=== PATIENT | male | born 1990 | race Caucasian/White ===

== ENCOUNTER 2018-02-07 10:52 | Emergency (ER) | payer OTHER ==
[~2018-02-07] VITALS: Ht 182.9 cm; Wt 104.0 kg
[2018-02-07] MEDS ORDERED: sulfamethoxazole/trimethoprim DS (800/160mg) tablet PO ONE (11:10)
[2018-02-07] MEDS ORDERED: bacitracin 15gm ointment TP ONE (11:10)
[2018-02-07] MEDS ORDERED: ondansetron 4mg rapidly disintigrating tab PO ONE (11:10)
[2018-02-07] MEDS ORDERED: LIDOcaine 1.5% w/epinephrine 1:200,000 5ml ampul IJ ONE (11:10)
[2018-02-07] MEDS ORDERED: HYDROcodone/acetaminophen 5mg/325mg tablet PO ONE (11:15)
[2018-02-07] MEDS ORDERED: HYDR-3965 PO (12:19)
[2018-02-07] MEDS ORDERED: SULF1TAB49 PO (12:19)
[2018-02-07 13:05] VITALS: BP 144/116
== END 2018-02-07 13:06 | disposition home or self-care (01) ==
LOC: ER 10:52
DX: S68.125A Partial traumatic metacarpophalangeal amputation of left ring finger, initial encounter (principal); S61.215A Laceration without foreign body of left ring finger without damage to nail, initial encounter; W23.0XXA Caught, crushed, jammed, or pinched between moving objects, initial encounter; Y93.89 Activity, other specified; Y92.69 Other specified industrial and construction area as the place of occurrence of the external cause; Y99.9 Unspecified external cause status
CPT/HCPCS: 12001; 12002; 73140; 99284

== ENCOUNTER 2018-08-19 19:31 | Emergency (ER) | payer MEDICAID, OTHER ==
[~2018-08-19] VITALS: Ht 182.9 cm; Wt 103.6 kg
[2018-08-19 19:41] VITALS: BP 149/75
[2018-08-19] MEDS ORDERED: HYDR-4383 PO (20:21)
[2018-08-19] MEDS ORDERED: AMOX500C2 PO (20:21)
== END 2018-08-19 20:26 | disposition home or self-care (01) ==
LOC: ER 19:32
DX: S02.5XXA Fracture of tooth (traumatic), initial encounter for closed fracture (principal); K04.7 Periapical abscess without sinus; X58.XXXA Exposure to other specified factors, initial encounter; Y93.89 Activity, other specified; Y92.89 Other specified places as the place of occurrence of the external cause; Y99.9 Unspecified external cause status
CPT/HCPCS: 99283

== ENCOUNTER 2020-01-14 13:57 | Emergency (ER) | payer MEDICAID, OTHER ==
[~2020-01-14] VITALS: Ht 182.9 cm; Wt 100.0 kg
[~2020-01-14 13:57] MED LIST: HYDR-4383 PO
[2020-01-14 14:14] VITALS: BP 141/85
[2020-01-14] MEDS ORDERED: CLIN300C70 PO (16:04)
[2020-01-14] MEDS ORDERED: ondansetron 4mg rapidly disintigrating tab PO ONE (16:05)
[2020-01-14] MEDS ORDERED: HYDROcodone/acetaminophen 10/325mg tab PO ONE (16:05)
== END 2020-01-14 16:20 | disposition home or self-care (01) ==
LOC: ER 13:58
DX: K05.219 Aggressive periodontitis, localized, unspecified severity (principal); Z79.2 Long term (current) use of antibiotics; Z79.899 Other long term (current) drug therapy
CPT/HCPCS: 99283

== ENCOUNTER 2020-01-23 15:18 | Emergency (ER) | payer MEDICAID ==
[~2020-01-23] VITALS: Ht 182.9 cm; Wt 102.3 kg
[2020-01-23 15:19] VITALS: BP 132/61
[2020-01-23] MEDS ORDERED: proparacaine 0.5% ophthalmic drops 15ml RIGHTEYE ONE (15:30)
[2020-01-23] MEDS ORDERED: ibuprofen 200mg tablet PO ONE (15:55)
[2020-01-23] MEDS ORDERED: ciprofloxacin 0.3% 2.5ml ophthalmic solution RIGHTEYE ONE (15:55)
== END 2020-01-23 16:24 | disposition home or self-care (01) ==
LOC: ER 15:19
DX: T15.01XA Foreign body in cornea, right eye, initial encounter (principal); H57.11 Ocular pain, right eye; H53.141 Visual discomfort, right eye; Z79.899 Other long term (current) drug therapy; X58.XXXA Exposure to other specified factors, initial encounter; Y93.89 Activity, other specified; Y92.89 Other specified places as the place of occurrence of the external cause; Y99.8 Other external cause status
CPT/HCPCS: 65220; 99284

== ENCOUNTER 2020-08-18 17:59 | Emergency (ER) | payer MEDICAID ==
[~2020-08-18] VITALS: Ht 182.9 cm; Wt 108.1 kg
[2020-08-18 18:42] LABS: BASOPHILS # (AUTO) 0.1 X10'3 (0-0.2); BASOPHILS % (AUTO) 1.4 % (0-1); EOSINOPHILS # (AUTO) 0.2 X10'3 (0-0.9); EOSINOPHILS % (AUTO) 3.5 % (0-6); HEMATOCRIT 42.9 % (42.0-52.0); HEMOGLOBIN 14.4 g/dl (14.0-17.9); LYMPHOCYTES # (AUTO) 2.1 X10'3 (1.1-4.8); LYMPHOCYTES % (AUTO) 31.4 % (21-51); MEAN CORPUSCULAR HEMOGLOBIN 30.5 PG (27.0-31.0); MEAN CORPUSCULAR HGB CONC 33.4 g/dL (33.0-36.5); MEAN CORPUSCULAR VOLUME 91.2 FL (78-98); MEAN PLATELET VOLUME 7.4 FL (7.4-10.4); MONOCYTES # (AUTO) 0.7 X10'3 (0-0.9); MONOCYTES % (AUTO) 9.7 % (2-12); NEUTROPHILS # (AUTO) 3.6 X10'3 (1.8-7.7); PLATELET COUNT 307 X10'3 (140-440); RED BLOOD COUNT 4.71 X10'6 (4.70-6.10); RED CELL DISTRIBUTION WIDTH 13.1 % (11.5-14.5); WHITE BLOOD COUNT 6.8 X10'3 (4.5-11.0)
[2020-08-18 18:57] LABS: ALANINE AMINOTRANSFERASE 43 U/L (12-78); ALBUMIN 3.7 G/DL (3.4-5.0); ALBUMIN/GLOBULIN RATIO 0.9 (1.1-1.5); ALKALINE PHOSPHATASE 94 IU/L (46-116); ANION GAP 8 (8-16); ASPARTATE AMINO TRANSFERASE 26 U/L (10-37); BILIRUBIN,TOTAL 0.3 MG/DL (0.1-1.0); BLOOD UREA NITROGEN 15 MG/DL (7-18); CALCIUM 8.7 MG/DL (8.5-10.1); CHLORIDE 107 MMOL/L (99-107); CREATININE 0.88 MG/DL (0.60-1.10); GLUCOSE 88 MG/DL (70-104); POTASSIUM 3.8 MMOL/L (3.5-5.1); SODIUM 143 MMOL/L (135-145); TOTAL CARBON DIOXIDE 27.9 MMOL/L (24-32); TOTAL PROTEIN 7.6 G/DL (6.4-8.2); eGFR > 90 ML/MIN
[2020-08-18 20:20] VITALS: BP 134/78
== END 2020-08-18 20:21 | disposition home or self-care (01) ==
LOC: ER 17:59
DX: R60.0 Localized edema (principal); M25.472 Effusion, left ankle; M25.471 Effusion, right ankle; F17.200 Nicotine dependence, unspecified, uncomplicated; F12.90 Cannabis use, unspecified, uncomplicated; Z79.899 Other long term (current) drug therapy
CPT/HCPCS: 36415; 71045; 80053; 83880; 85025; 99284

== ENCOUNTER 2021-09-26 13:09 | Emergency (ER) | payer MEDICAID ==
[~2021-09-26] VITALS: Ht 182.9 cm; Wt 106.8 kg
[2021-09-26 13:51] LABS: BASOPHILS # (AUTO) 0.1 X10'3 (0-0.2); BASOPHILS % (AUTO) 0.7 % (0-1); EOSINOPHILS # (AUTO) 0.3 X10'3 (0-0.9); EOSINOPHILS % (AUTO) 3.1 % (0-6); HEMATOCRIT 47.5 % (42.0-52.0); HEMOGLOBIN 15.9 g/dl (14.0-17.9); LYMPHOCYTES # (AUTO) 2.3 X10'3 (1.1-4.8); LYMPHOCYTES % (AUTO) 25.2 % (21-51); MEAN CORPUSCULAR HEMOGLOBIN 29.2 PG (27.0-31.0); MEAN CORPUSCULAR HGB CONC 33.4 g/dL (33.0-36.5); MEAN CORPUSCULAR VOLUME 87.4 FL (78-98); MEAN PLATELET VOLUME 7.4 FL (7.4-10.4); MONOCYTES # (AUTO) 1.1 X10'3 (0-0.9); MONOCYTES % (AUTO) 12.1 % (2-12); NEUTROPHILS # (AUTO) 5.4 X10'3 (1.8-7.7); NEUTROPHILS % (AUTO) 58.9 % (42-75); PLATELET COUNT 371 X10'3 (140-440); RED BLOOD COUNT 5.43 X10'6 (4.70-6.10); RED CELL DISTRIBUTION WIDTH 13.1 % (11.5-14.5); WHITE BLOOD COUNT 9.2 X10'3 (4.5-11.0)
[2021-09-26 13:53] LABS: ALANINE AMINOTRANSFERASE 53 U/L (12-78); ALBUMIN 3.6 G/DL (3.4-5.0); ALBUMIN/GLOBULIN RATIO 0.9 (1.1-1.5); ALKALINE PHOSPHATASE 94 IU/L (46-116); ANION GAP 8 (8-16); ASPARTATE AMINO TRANSFERASE 28 U/L (10-37); BILIRUBIN,TOTAL 0.3 MG/DL (0.1-1.0); BLOOD UREA NITROGEN 13 MG/DL (7-18); BUN/CREATININE RATIO 14.8 (5.4-32.0); CALCIUM 8.8 MG/DL (8.5-10.1); CHLORIDE 106 MMOL/L (99-107); CREATININE 0.88 MG/DL (0.60-1.10); GLUCOSE 75 MG/DL (70-104); LIPASE 93 U/L (73-393); POTASSIUM 3.7 MMOL/L (3.5-5.1); SODIUM 141 MMOL/L (135-145); TOTAL CARBON DIOXIDE 26.7 MMOL/L (24-32); TOTAL PROTEIN 7.5 G/DL (6.4-8.2); eGFR > 90 ML/MIN
[2021-09-26] MEDS ORDERED: famotidine 20mg tablet PO ONE (14:25)
[2021-09-26 14:40] VITALS: BP 119/72
[2021-09-26] MEDS ORDERED: LIDOcaine Viscous 15ml cup MM ONE (15:45)
--- NOTE | 2021-09-26 16:10 | NUR ---
PT SIGNED THE AMA FORM AND LEFT THE ER.
== END 2021-09-26 16:00 | disposition left against medical advice (07) ==
LOC: ER 13:09
DX: R10.10 Upper abdominal pain, unspecified (principal); R14.0 Abdominal distension (gaseous); F12.90 Cannabis use, unspecified, uncomplicated; Z79.899 Other long term (current) drug therapy
CPT/HCPCS: 36415; 71046; 80053; 83690; 85025; 93005; 99284; 99285

== ENCOUNTER 2022-01-31 10:37 | Emergency (ER) | payer MEDICAID, OTHER ==
[~2022-01-31] VITALS: Ht 182.9 cm; Wt 105.0 kg
[2022-01-31 10:48] VITALS: BP 121/77
[2022-01-31] MEDS ORDERED: penicillin V potassium 500mg tablet PO ONE (11:55)
[2022-01-31] MEDS ORDERED: ibuprofen 200mg tablet PO ONE (11:55)
[2022-01-31] MEDS ORDERED: PENI-88 PO (12:12)
== END 2022-01-31 12:21 | disposition home or self-care (01) ==
LOC: ER 10:37
DX: K04.7 Periapical abscess without sinus (principal); K08.89 Other specified disorders of teeth and supporting structures; F12.90 Cannabis use, unspecified, uncomplicated; Z79.2 Long term (current) use of antibiotics; Z79.899 Other long term (current) drug therapy
CPT/HCPCS: 99283